=== PATIENT | male | born 1930 | race Caucasian/White ===

== ENCOUNTER 2017-01-30 20:18 | Inpatient (IN) | payer MEDICARE ==
[2017-01-30 21:07] LABS: ABSOLUTE NEUTROPHIL COUNT 12.2 K/mm3 (1.8-7.7); BASO % 0.1 % (0.2-1.0); EOS % 0.1 % (0.9-2.9); HEMOGLOBIN 14.6 gm/l (14.0-18.0); IMM NEUT # 0.1 K/mm3 (0-0.2); IMM NEUT% 0.4 % (0-1); LYMPH # 1.6 (1.0-4.8); LYMPH % 9.9 % (15-45); MEAN CELL VOLUME 96.9 fl (80.0-94.0); MEAN CORPUSCULAR HEMOGLOBIN 32.2 pg (27.0-31.0); MEAN CORPUSCULAR HGB CONC 33.2 g/dl (33.0-37.0); MONO # 2.3 (0.0-0.8); NEUT % 75.5 % (43-75); PLATELET COUNT 253 K/mm3 (130-400); RED CELL DISTRIBUTION WIDTH 14.3 % (11.5-14.5)
[2017-01-30 21:17] LABS: ALB/GLOB RATIO 0.9 (>1.0); ALBUMIN 3.6 gm/dL (3.5-5.7)
[2017-01-30 22:01] LABS: URINE BILIRUBIN NEGATIVE (NEGATIVE); URINE BLOOD 3+ (NEGATIVE); URINE GLUCOSE (UA) NEGATIVE (NEGATIVE); URINE LEUKOCYTE ESTERASE NEGATIVE (NEGATIVE); URINE NITRITE NEGATIVE (NEGATIVE); URINE PROTEIN TRACE (NEGATIVE); URINE UROBILINOGEN NORMAL (0-1 mg/dl)
[2017-01-30 22:02] LABS: URINE APPEARANCE CLEAR; URINE COLOR DARK YELLOW
[2017-01-30] MEDS ORDERED: CEFTRIAXONE 1 GRAM DUPLEX 50 ML IV ONE (22:11)
[2017-01-30 22:12] LABS: URINE EPITHELIAL CELLS 0-2 /hpf
[2017-01-30] MEDS ORDERED: DOXYCYCLINE HYCLATE 100 MG TABLET ONE (22:12)
[2017-01-30 22:14] LABS: URINE BACTERIA RARE; URINE OTHER RARE YEAST
[2017-01-30] MEDS ORDERED: BISACODYL 10 MG SUP PR PRN (23:04)
[2017-01-30] MEDS ORDERED: MAGNESIUM HYDROXIDE 30 ML UDCUP PO PRN (23:04)
[2017-01-30] MEDS ORDERED: BLISTEX LIPSTICK 1 EACH TP PRN (23:04)
[2017-01-30] MEDS ORDERED: ACETAMINOPHEN 325 MG TABLET PO PRN (23:04)
[2017-01-30] MEDS ORDERED: MENTHOL/CETYLPYRD 1 EACH LOZENGE PO PRN (23:04)
[2017-01-30] MEDS ORDERED: SODIUM CHLORIDE 0.9% 100 ML IV PRN (23:04)
[2017-01-30] MEDS ORDERED: ALBUTEROL NEB 2.5 MG/3 ML VIAL.NEB NEB PRN (23:04)
[2017-01-30] MEDS ORDERED: BISACODYL 5 MG TABLET.EC PO PRN (23:04)
[2017-01-30 23:06] VITALS: BMI 28.0
[2017-01-30] MEDS ORDERED: PUMP TUBING ONE (23:41)
[2017-01-30] MEDS: SODIUM CHLORIDE 0.9% 1,000 ML IV SCH (23:45)
[2017-01-30] MEDS: ENOXAPARIN SODIUM 30 MG/0.3 ML SYRINGE SUB-Q SCH (23:45)
[2017-01-31] MEDS: LIDOCAINE 5% PATCH TP SCH ×2 (00:30→13:04)
[2017-01-31 06:12] LABS: ABSOLUTE NEUTROPHIL COUNT 12.3 K/mm3 (1.8-7.7); BASO % 0.2 % (0.2-1.0); EOS % 0.1 % (0.9-2.9); HEMATOCRIT 45.6 % (32.0-52.0); HEMOGLOBIN 14.6 gm/l (14.0-18.0); IMM NEUT # 0.1 K/mm3 (0-0.2); IMM NEUT% 0.5 % (0-1); LYMPH # 1.6 (1.0-4.8); LYMPH % 9.9 % (15-45); MEAN CELL VOLUME 98.9 fl (80.0-94.0); MEAN CORPUSCULAR HEMOGLOBIN 31.7 pg (27.0-31.0); MEAN PLATELET VOLUME 12.2 fl (7.4-10.4); MONO # 2.1 (0.0-0.8); MONO % 12.8 % (4-12); NEUT % 76.5 % (43-75); PLATELET COUNT 201 K/mm3 (130-400); RED CELL DISTRIBUTION WIDTH 14.3 % (11.5-14.5)
[2017-01-31 06:32] LABS: CALCIUM 9.5 mg/dL (8.6-10.3)
--- NOTE | 2017-01-31 07:43 | RAD ---
Exam: Portable chest COMPARISON: None INDICATION: Weakness. FINDINGS: A semierect AP portable view of the chest was obtained. Cardiac silhouette is at the upper limits of normal. Dual-lead pacer is present. Lungs are fairly well-inflated although there is relative elevation of the right hemidiaphragm. There is no focal airspace disease or pleural effusion. Mild irregularity within the lateral left chest wall is noted and may be related to remote trauma. IMPRESSION: No acute pulmonary process.
--- NOTE | 2017-01-31 07:45 | HP ---
Andrew Palmer [id number] DATE OF ADMISSION: 01/30/2017 CHIEF COMPLAINT: Altered mentation. HISTORY OF PRESENT ILLNESS: The patient is an 86-year-old male with senile dementia brought to the [facility] Emergency Department due to concerns about altered mentation. The patient has had a gradual decline in the last three months becoming less verbal, eating less, and becoming less active, however, in the last week his symptoms have dramatically worsened. Yesterday he had an episodes of vomiting four times. He has had minimal oral intake in the last 48 hours. The family has noticed increased twitching movements of his extremities. It has become more difficulty to get him out of bed or to get him to eat. He has become less verbal. REVIEW OF SYSTEMS: Negative for any fevers or chills. He has had no upper respiratory symptoms. They have not noticed that he has had any cough at all. There has been no reports of chest pain. No reports of abdominal pain. He had the nausea and vomiting as mentioned. There has been no diarrhea or constipation. No history of headaches, fainting, blackouts, or seizures. No urinary symptoms. He has chronic incontinence. Review of systems is otherwise negative. 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 He has chronic atrial fibrillation. 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 He has been followed by [facility]. His medical record in the clinic indicates coronary artery disease, but the cardiology records do not support this. He has had a history of paroxysmal atrial flutter and sick sinus syndrome treated with a pacemaker. He has had a history of polyneuropathy associated with postherpetic neuralgia. He also has osteoarthritis. He has had a history of hypothyroidism. 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 He has had some chronic depression. He has had gout. He has not had any recent hospitalizations. PAST SURGICAL HISTORY: Significant for a right carotid endarterectomy in 2005. He had a pacemaker placed in 2010. He had a laparoscopic cholecystectomy several years ago. He had an appendectomy as a young man. ALLERGIES: He has no known drug allergies. CURRENT MEDICATIONS: Consist of: 1. Triamcinolone actinide cream applied to the rash on his torso twice daily as needed, lately it has not been needed. 2. He takes a Super B complex tablet once daily. 3. Toprol XL 50 mg daily. 4. Lisinopril 5 mg daily. 5. Lidoderm 5% patch applied to the right leg for neuropathy daily and removed at night. 6. Levothyroid 88 mcg daily. 7. Lexapro 20 mg daily. 8. Depakote 250 mg daily. 9. Centrum Silver once daily. 10. Calcium with magnesium and zinc supplement one daily. 11. Enteric coated aspirin 81 mg daily. 12. Allopurinol 300 mg daily. FAMILY HISTORY: Notable for a father with alcoholism. His mother of a stroke. SOCIAL HISTORY: He is currently in his second marriage, they have been for 25 years. He has three estranged sons. He has never been a smoker. He does not drink alcohol. He lives in his home with his and she has hired a caregiver. Patient has become a two person assists recently. Prior to that he was a one person assist. He uses a left ankle/foot orthotic. They Trapeze in the bedroom and I believe a transfer chair as well as a walker. His primary care provider is Dr. Jose Dutta. Patient's is interested in keeping him at home as long as possible. Patient has a POLST form indicating limited additional interventions with do not resuscitate status. He is not interested in a feeding tube. PHYSICAL EXAMINATION: VITALS: Show a temperature of 98.6, pulse 82, blood pressure 120/66, respirations 15, oxygen saturation 93% on room air. Body mass index 28, weight is 98.9 kg. GENERAL: This is a slightly obese elderly male in no acute distress except for overall somnolence. HEENT: Shows no focal weakness. Moist pink oral mucosa is present. NECK: Supple without lymphadenopathy or thyromegaly. LUNGS: Generally clear to auscultation bilaterally. CARDIOVASCULAR: Reveals a regular rate and rhythm without a murmur. ABDOMEN: Soft, nontender, nondistended with positive bowel sounds. GENITOURINARY: Unremarkable. RECTAL: Deferred. EXTREMITIES: Show no peripheral edema. He has hammertoe deformities of both feet. Atrophy of the left calf. Dorsalis pedis pulses are reduced, but palpable bilaterally. NEUROLOGIC: Nonfocal. DIAGNOTICS: Chest x-ray showed possible left basilar infiltrate. No other diagnostic imaging tests were performed. EKG shows a paced rhythm. LABORATORY STUDIES: Show leukocytosis with a white count of 16,000, hemoglobin is 14.6, platelet count is 253,000. Differential shows neutrophilia. Lactate is 1.3. Chemistry profile shows a sodium of 132, potassium 4.3, carbon dioxide 25, BUN 34, creatinine 2.3, glucose 129. Liver function tests are normal. Albumin is 3.6. Urinalysis shows concentrated urine, trace protein, 3+ blood, 10-20 red cells, 2-5 white cells, rare bacteria. ASSESSMENT AND PLAN: The patient has acute metabolic encephalopathy associated with acute kidney injury, suspect dehydration. He has leukocytosis and possible left lower lobe infiltrate on x-ray, this could be related to aspiration from his recent vomiting. He had a history of vomiting four times yesterday. No further evidence of any nausea. He has chronic hypothyroidism on replacement. He has a history of a pacemaker and advanced senile dementia. We will get a TSH level. He will continue on his daily aspirin along with his thyroid medicine and his Toprol XL. I am going to hold his lisinopril, his Depakote, and his Lexapro along with the Allopurinol for now due to the acute kidney injury. He will be gently hydrated. He will be treated with doxycycline and Rocephin for presumptive pneumonia. Will check a TSH level. Albuterol nebs are available as needed. Venous thromboembolism risk is moderate and Lovenox has been prescribed as a renally adjusted dose for prophylaxis. Further treatment and recommendations will depend on his hospital course. JOB: [id number] CC: Dr. Jose Dutta
[2017-01-31] MEDS: LEVOTHYROXINE SODIUM 88 MCG TABLET PO SCH (07:48)
[2017-01-31] MEDS: SODIUM CHLORIDE 0.9% 1,000 ML IV SCH ×2 (07:56→18:10)
[2017-01-31] MEDS: ASPIRIN (ENTERIC COATED) 81 MG TABLET.EC PO SCH (09:08)
[2017-01-31] MEDS: METOPROLOL SUCCINATE (XL) 50 MG TAB.PRT.SR PO SCH (09:09)
[2017-01-31] MEDS: DOCUSATE SODIUM 100 MG CAPSULE PO SCH ×2 (09:09→22:27)
[2017-01-31] MEDS: DOXYCYCLINE HYCLATE 100 MG in NS 0.9% (MINI-BAG PLUS) 100 ML IV SCH ×2 (09:15→21:16)
--- NOTE | 2017-01-31 10:56 | PDOC43 ---
- Subjective Chief Complaint: confusion, weakness Awake but weak this AM. No c/o's. Some dry heaves this AM as per RN. Subjective: Denies Shortness of Breath, Denies Cough, Denies Chest Pain, Denies Fever, Denies Chills - Objective Vital Signs Temperature 97.6 F 01/31/17 07:45 Pulse Rate 79 01/31/17 08:18 Respiratory Rate 16 01/31/17 08:18 Blood Pressure 140/73 01/31/17 07:45 O2 Saturation by Pulse Oximetry 95 01/31/17 08:18 Oxygen Delivery Method Room Air Oxygen Flow Rate 0 Intake and Output 01/30/17 01/31/17 02/01/17 06:59 06:59 06:59 Intake Total 834 Output Total 350 Balance 484 General: Cooperative, Other (Sleeping but arouses. Answers questions with one word answers. Disoriented but calm.), No Acute Distress Lungs: Clear to Auscultation Bilaterally Cardiovascular: Regular Rate and Rhythm Abdomen: Soft, Normal Bowel Sounds, Non-Distended, Other (Some mild TTP with minimal guarding with palpation B LQ's. No rebound.) Extremities: Normal Pulses, No Edema Laboratory 01/31/17 05:30 01/31/17 05:30 Current Medications: Current meds reviewed in EMR. - Problems: Assessment/Plan (1) Encephalopathy Status: AcuteAssessment/Plan: Increased confusion/weakness in context of worsening dementia. TC to step-son ( in [place], [place]). Pt is chair-bound at baseline. Significant decline in last 2-3 months. Multifactoral etiology- dehydration, SUZETTE, ? abd pathology, etc. Workup continues- see below. Check Depakote level. (2) Abdominal pain Qualifiers: Abdominal location: lower abdomen, unspecified Qualifier Code: (R10.30 ) Lower abdominal pain, unspecified Status: AcuteAssessment/Plan: Difficult to assess given pt's dementia, but does seem to have tenderness in lower abd. Will get dry abd/pelvis CT. (3) SUZETTE (acute kidney injury) Status: AcuteAssessment/Plan: Cr=2.3 with baseline around 1.0. Presumed dehydration as etiology. Work-up continues. Con't IVF and supportive care. (4) Dementia Qualifiers: Dementia type: vascular dementia Dementia behavioral disturbance: with behavioral disturbance Qualifier Code: (F01.51) Vascular dementia with behavioral disturbance Status: ChronicAssessment/Plan: With significant progression over last few months as per step-son. On depakote d/t behavioral issues. Still at home with as caregiver- needs higher level of care but has resisted in past. (5) Atrial fibrillation Qualifiers: Atrial fibrillation type: chronic Qualifier Code: (I48.2) Chronic atrial fibrillation Status: ChronicAssessment/Plan: With h/o SSS and now with pacer. Appears at baseline. (6) Late effects of CVA (cerebrovascular accident) Status: ChronicAssessment/Plan: Visual cortex/temporal lobe CVA in 2005. Chronic L hemiparesis. (7) Hypothyroidism Qualifiers: Hypothyroidism type: unspecified Qualifier Code: (E03.9) Hypothyroidism , unspecified Status: ChronicAssessment/Plan: Stable at baseline. VTE Prophylaxis: Renal dose lovenox. Disposition: Unknown.
[2017-01-31 11:00] LABS: NEUTROPHILS 79 % (43-75); TOTAL CELLS COUNTED 100
[2017-01-31 11:01] LABS: BAND 0 % (0-10); BASOPHIL 1 % (0-1); EOSINOPHIL 0 % (1-3); LYMPHOCYTE 6 % (15-45); MONOCYTE 14 % (4-12); PLATELET ESTIMATE NORMAL (NORMAL)
--- NOTE | 2017-01-31 15:15 | CT ---
Exam: CT chest, abdomen and pelvis without contrast COMPARISON: Chest radiograph 01/30/2017 INDICATION: High WBC, weakness. TECHNIQUE: CT examination of the chest, abdomen and pelvis was obtained without contrast due to GFR of 27. FINDINGS: The urinary bladder is markedly distended; correlate for urinary bladder outlet obstruction. There is mild fullness of both collecting system and ureters without sung hydronephrosis. There is nonspecific perinephric stranding bilaterally which extends along the psoas muscle. There is moderate prostatomegaly. There is no significant pelvic lymphadenopathy by size criteria. There is colonic diverticulosis, most prominent within the sigmoid colon, without evidence of diverticulitis. There is a rounded metallic density measuring up to 2.4 cm within the right side of the abdomen which is producing a significant amount of beam hardening artifact. This appears to be located within small bowel. There is no evidence of bowel obstruction. There is no free air or free intraperitoneal fluid. The gallbladder is absent. Pancreas is globally atrophic. There is no adrenal mass. Spleen is normal in size. Liver is unremarkable on this noncontrast exam. Atheromatous but nonaneurysmal abdominal aorta and iliac arteries. Dense coronary calcifications are noted. Dual-lead pacer is present. There is mild dependent atelectasis. Lungs are otherwise clear. There is no significant mediastinal or hilar lymphadenopathy by size criteria. There is no pleural or pericardial effusion. There is multilevel degenerative disc disease and facet arthropathy within the lumbar spine. Bridging osteophytes are noted within the thoracic spine. IMPRESSION: 1. Urinary bladder is markedly distended, associated with mild fullness of both collecting systems and retroperitoneal fat stranding. Correlate for bladder outlet obstruction and urinary tract infection. There is moderate prostatomegaly. 2. No CT evidence for pneumonia. There is mild dependent atelectasis. 3. 2.4 cm round metallic in the right upper quadrant which appears to be located within small bowel. Although this may reflect an ingested foreign body there is no evidence of bowel obstruction. 4. No additional findings identified to explain patient's symptoms. It'll findings as above including cholecystectomy changes and diverticulosis. Findings were discussed with Dr. Lora at 1505 hours 01/31/2017.
[2017-01-31] MEDS ORDERED: CEFTRIAXONE 1 GRAM DUPLEX 1 G in Premix (D5W) 50 ml 1 EACH IV SCH (22:00)
[2017-01-31] MEDS: ENOXAPARIN SODIUM 30 MG/0.3 ML SYRINGE SUB-Q SCH (22:27)
[2017-02-01] MEDS: LIDOCAINE 5% PATCH TP SCH ×2 (00:29→23:44)
[2017-02-01] MEDS: SODIUM CHLORIDE 0.9% 1,000 ML IV SCH ×2 (06:02→08:59)
[2017-02-01 06:11] LABS: ABSOLUTE NEUTROPHIL COUNT 6.3 K/mm3 (1.8-7.7); BASO % 0.2 % (0.2-1.0); EOS # 0.1 (0.0-0.5); EOS % 0.9 % (0.9-2.9); HEMATOCRIT 38.9 % (32.0-52.0); HEMOGLOBIN 12.5 gm/l (14.0-18.0); IMM NEUT% 0.2 % (0-1); LYMPH # 1.8 (1.0-4.8); LYMPH % 18.9 % (15-45); MEAN CELL VOLUME 99.7 fl (80.0-94.0); MEAN CORPUSCULAR HEMOGLOBIN 32.1 pg (27.0-31.0); MEAN CORPUSCULAR HGB CONC 32.1 g/dl (33.0-37.0); MEAN PLATELET VOLUME 11.1 fl (7.4-10.4); MONO # 1.3 (0.0-0.8); MONO % 13.4 % (4-12); NEUT % 66.4 % (43-75); PLATELET COUNT 177 K/mm3 (130-400); RED CELL DISTRIBUTION WIDTH 14.2 % (11.5-14.5)
[2017-02-01 06:32] LABS: ALB/GLOB RATIO 0.8 (>1.0); ALBUMIN 2.8 gm/dL (3.5-5.7); CALCIUM 8.9 mg/dL (8.6-10.3)
[2017-02-01] MEDS: DOXYCYCLINE HYCLATE 100 MG in NS 0.9% (MINI-BAG PLUS) 100 ML IV SCH (08:58)
[2017-02-01] MEDS: ASPIRIN (ENTERIC COATED) 81 MG TABLET.EC PO SCH (08:59)
[2017-02-01] MEDS: METOPROLOL SUCCINATE (XL) 50 MG TAB.PRT.SR PO SCH (08:59)
[2017-02-01] MEDS: DOCUSATE SODIUM 100 MG CAPSULE PO SCH ×2 (08:59→20:56)
[2017-02-01] MEDS: LEVOTHYROXINE SODIUM 88 MCG TABLET PO SCH (08:59)
--- NOTE | 2017-02-01 09:25 | RAD ---
ABDOMEN ONE VIEW HISTORY: Foreign body. Supine abdominal radiographs acquired. COMPARISON: Correlation against 01/31/2017 CT examination. FINDINGS: BOWEL GAS PATTERN: No small bowel dilatation noted. FOREIGN BODY: Rounded foreign body projecting over the right upper quadrant in a position similar to that seen on prior CT. This measures approximately 2.5 cm in size. ABDOMINOPELVIC CALCIFICATIONS: Small pelvic phleboliths. POSTPROCEDURAL CHANGE: Evidence of prior cholecystectomy. Urinary catheter is noted. OSSEOUS STRUCTURES: Severe changes of thoracolumbar spondylosis. Axial joint space loss of the right hip. IMPRESSION: 1. Grossly unchanged position of foreign body at the right upper quadrant, suspected ingested quarter. 2. Nonobstructive bowel gas pattern. 3. Evidence of prior cholecystectomy and urinary catheterization. 4. Prominent changes of spondylosis.
--- NOTE | 2017-02-01 13:29 | PDOC43 ---
- Subjective Chief Complaint: confusion, weakness Gregory placed yesterday with 900 cc return. Pt improved this AM. No new c/o's. Subjective: Reports Adequate Oral Intake, Denies Shortness of Breath, Denies Cough, Denies Chest Pain, Denies Abdominal Pain, Denies Nausea, Denies Vomiting , Denies Fever, Denies Chills - Objective Vital Signs Temperature 97.8 F 02/01/17 11:36 Pulse Rate 83 02/01/17 11:36 Respiratory Rate 17 02/01/17 11:36 Blood Pressure 109/57 02/01/17 11:36 O2 Saturation by Pulse Oximetry 93 02/01/17 11:36 Oxygen Delivery Method Room Air Oxygen Flow Rate 0 Intake and Output 01/31/17 02/01/17 02/02/17 06:59 06:59 06:59 Intake Total 834 3269 150 Output Total 350 2435 Balance 484 834 150 General: Alert, No Acute Distress HEENT: Atraumatic Lungs: Clear to Auscultation Bilaterally Cardiovascular: Regular Rate and Rhythm Abdomen: Soft, Normal Bowel Sounds, Non-Distended, No Tenderness Extremities: No Edema Laboratory 02/01/17 05:30 02/01/17 05:30 Current Medications: Current meds reviewed in EMR. - Problems: Assessment/Plan (1) Urinary retention Status: AcuteAssessment/Plan: Marked urinary retention noted on CT 01/31. Gregory placed 01/31 with 900+ cc return. Improved strength today. Con't gregory and plan to arrange urology f/u as outpt. Check PSA. (2) Encephalopathy Status: AcuteAssessment/Plan: Increased confusion/weakness in context of worsening dementia. TC to step-son ( in [place], [place]) 01/31. Pt is chair-bound at baseline. Significant decline in last 2-3 months. Suspect urinary retention primary factor in acute change. Improved today as above. (3) SUZETTE (acute kidney injury) Status: AcuteAssessment/Plan: Cr improved to 1.6 with gregory-baseline around 1.0. Presumed post-obstuctive uropathy as etiology. Con't gregory as above. (4) Dementia Qualifiers: Dementia type: vascular dementia Dementia behavioral disturbance: with behavioral disturbance Qualifier Code: (F01.51) Vascular dementia with behavioral disturbance Status: ChronicAssessment/Plan: With significant progression over last few months as per step-son. On depakote d/t behavioral issues. Still at home with as caregiver- needs higher level of care but has resisted in past. seems open to SNF now. (5) Atrial fibrillation Qualifiers: Atrial fibrillation type: chronic Qualifier Code: (I48.2) Chronic atrial fibrillation Status: ChronicAssessment/Plan: With h/o SSS and now with pacer. Appears at baseline. (6) Late effects of CVA (cerebrovascular accident) Status: ChronicAssessment/Plan: Visual cortex/temporal lobe CVA in 2005. Chronic L hemiparesis. (7) Hypothyroidism Qualifiers: Hypothyroidism type: unspecified Qualifier Code: (E03.9) Hypothyroidism , unspecified Status: ChronicAssessment/Plan: Stable at baseline. VTE Prophylaxis: Renal dose lovenox. Disposition: Anticipate d/c to SNF 1-2 days.
[2017-02-01] MEDS ORDERED: ENOXAPARIN SODIUM 40 MG/0.4 ML SYRINGE SUB-Q SCH (21:00)
[2017-02-02 06:00] LABS: HEMATOCRIT 37.3 % (32.0-52.0); HEMOGLOBIN 12.1 gm/l (14.0-18.0); MEAN CELL VOLUME 99.7 fl (80.0-94.0); MEAN CORPUSCULAR HEMOGLOBIN 32.4 pg (27.0-31.0); MEAN CORPUSCULAR HGB CONC 32.4 g/dl (33.0-37.0); RED CELL DISTRIBUTION WIDTH 14.1 % (11.5-14.5)
[2017-02-02 06:16] LABS: CALCIUM 8.8 mg/dL (8.6-10.3)
[2017-02-02] MEDS ORDERED: DIVALPROEX SODIUM 250 MG TABLET.DR PO SCH (09:00)
[2017-02-02] MEDS ORDERED: LISINOPRIL 5 MG TABLET PO SCH (09:00)
[2017-02-02] MEDS ORDERED: ESCITALOPRAM 20 MG TABLET PO SCH (09:00)
[2017-02-02] MEDS: LEVOTHYROXINE SODIUM 88 MCG TABLET PO SCH (09:06)
[2017-02-02] MEDS: METOPROLOL SUCCINATE (XL) 50 MG TAB.PRT.SR PO SCH (09:06)
[2017-02-02] MEDS: DOCUSATE SODIUM 100 MG CAPSULE PO SCH (09:07)
[2017-02-02] MEDS: ASPIRIN (ENTERIC COATED) 81 MG TABLET.EC PO SCH (09:07)
[2017-02-02 11:34] VITALS: BP 112/65
--- NOTE | 2017-02-02 20:41 | DS ---
KAYODE ANDERSON [id number] DATE OF ADMISSION: 01/30/2017 DATE OF DISCHARGE: 02/02/2017 DISCHARGE DIAGNOSES: 1. Acute metabolic encephalopathy. 2. Acute kidney injury. 3. Bladder outlet obstruction. 4. Benign prostatic hypertrophy versus prostatic neoplasm, with elevated PSA greater than 50. 5. Acute dehydration. 6. Hypothyroidism. 7. Presence of a pacemaker. 8. Advanced senile dementia. TO SUMARIZE THE ADMISSION AND HOSPITAL COURSE: The patient is an 86-year-old male with senile dementia who presented with concerns about worsening mentation, decreased oral intake and weakness. Workup showed evidence of acute kidney injury, with a creatinine elevated at 2.3. He also had leukocytosis, with a white blood cell count of 16. There was initially concern about a possible pneumonia and he was treated with Rocephin and Zithromax. Further review of his admission imaging studies however failed to show evidence of a pneumonia. Because of the persistent leukocytosis, he underwent CT imaging of the chest, abdomen and pelvis, showing evidence of a bladder outlet obstruction with hydronephrosis and moderate prostatomegaly. He had no other acute findings on his CT images. He had a Reyes catheter placed, with over 900 mL of urine returned. He had improvement in his creatinine with the decompression of the bladder. His leukocytosis also spontaneously improved and he was seen and evaluated by physical therapy and occupational therapy and felt to benefit from a stay in the custodial facility to improve his functioning back to his baseline. He was medically stable for discharge on 02/02/2017. PHYSICAL EXAMINATION: VITAL SIGNS: His vitals at discharge to [facility] showed a temperature of 97.9, pulse 81, blood pressure 112/65, respirations 18, and oxygen saturation is 94% on room air. Body mass index is 28 and weight is 98.9 kilograms. GENERAL: An obese male in no acute distress. HEENT: Unremarkable. NECK: Supple, without lymphadenopathy or thyromegaly. LUNGS: Clear to auscultation bilaterally. CARDIOVASCULAR: Reveals a regular rate and rhythm, without a murmur. ABDOMEN: Obese, soft nontender and nondistended, with positive bowel sounds. EXTREMITIES: Show no peripheral edema. LABS: Laboratory studies on the day of discharge showed a white count of 8.6, hemoglobin of 12.1 and a platelet count of 190,000. Chemistry profile showed a sodium of 135, potassium 3.6, BUN of 25, creatinine 1.1 and glucose of 83. PSA was 53.4. TSH was 5.43. DISPOSITION: To [facility] custodial facility where he will get PT and OT services to evaluate and treat. He is discharging with a Reyes catheter, which they will maintain per protocol. DISCHARGE FOLLOW-UP: He will have follow-up arranged with Dr. Juwan Valenzuela, to be arranged by their office. DISCHARGE DIET: He is going to be on a regular diet, regular texture. DISCHARGE ACTIVITY: Weightbearing as tolerated. Activity as tolerated. ALLERGIES: No known drug allergies. CODE STATUS: Do not resuscitate/do not intubate. DISCHARGE MEDICATIONS: Include: 1. Resumption of his home medications, which are allopurinol 300 mg daily. 2. Aspirin 81 mg daily. 3. Calcium/magnesium/zinc supplement one tablet daily. 4. Centrum Silver one daily. 5. Depakote 250 mg daily. 6. Lexapro 20 mg daily. 7. Levothyroxine 88 mcg daily. 8. Lidocaine 5% patch applied topically to the lower back or his thigh daily. 9. Lisinopril 5 mg daily. 10. Toprol XL 50 mg daily. 11. Vitamin B complex one daily. 12. Triamcinolone acetonide cream one application twice daily as needed for rash. VACCINES: He is up-to-date on his pneumococcal and his flu vaccinations. cc: Dr. Jose Dutta
== END 2017-02-02 16:25 | DRG 884 ==
LOC: ED 20:18 → MS 22:15
PROVIDERS: ADMIT Family Medicine; ATTEND Family Medicine
DX: F03.90 Unspecified dementia, unspecified severity, without behavioral disturbance, psychotic disturbance, mood disturbance, and anxiety (principal); N17.9 Acute kidney failure, unspecified; N13.8 Other obstructive and reflux uropathy; I69.354 Hemiplegia and hemiparesis following cerebral infarction affecting left non-dominant side; N40.1 Benign prostatic hyperplasia with lower urinary tract symptoms; E86.0 Dehydration; E03.9 Hypothyroidism, unspecified; Z95.0 Presence of cardiac pacemaker; I48.2 Chronic atrial fibrillation